=== PATIENT | male | born 1985 | race Caucasian/White ===

== ENCOUNTER 2022-01-28 09:07 | Emergency (ER) | payer OTHER, SELFPAY ==
--- NOTE | 2022-01-28 09:13 | ED.GENADUL_ITS ---
Discharge Plan Disposition Patient Disposition: Home Condition: Stable Discharge Details Clinical Impression: Acute lumbar myofascial strain Primary Care Provider: None,None ED Provider: Christen Fuentes Home Meds and New Rx's Prescriptions: New methocarbamol 500 mg tablet 500 mg PO Q6H PRN (Reason: muscle spasm) Qty: 14 0RF prednisone 20 mg tablet See Rx Instructions .ROUTE .COMPLEX Qty: 12 0RF Rx Instructions: Take 3 tabs daily for 2 days, then 2 tabs daily for 2 days, then 1 tab daily for 2 days Continued acetaminophen 500 mg Tablet 1,000 mg PO Q6H PRN Discharge Instructions Instructions: Muscle Strain (ED) Additional Instructions: Your x-ray today is reassuring and shows no evidence of acute concerning or significant findings. Your symptoms may be secondary to a muscle strain. Alternate ice and heat to the affected area(s) several times daily for 20 minutes at a time. Prescriptions for steroids and muscle relaxers have been sent electronically to your pharmacy. Alternate tylenol and motrin as needed and directed for pain. Take the tramadol as needed directed for pain not relieved with Tylenol or Motrin. You have been placed on care management's list to arrange for a follow-up appointment with a primary care doctor to establish care for reevaluation. Return immediately to the emergency department if you develop any worsening or new concerning symptoms. Stand Alone Forms: Work Release Discharge Data Discharge Date/Time-TO BE ENTERED AT DEPARTURE: 01/28/22 11:06 Discharge Physician: Christen Fuentes Medical Decision Making 0920 -- 36-year-old male presents with midline lower back pain after lifting an approximate 500 pound snowmobile onto a table yesterday at work. No cauda equina symptoms. Vitals within normal limits. Patient appears uncomfortable but nontoxic. His back is normal to inspection although his hunched over forward onto the stretcher while examining his back. He has no midline or paraspinal lumbar tenderness. He is neurovascularly intact without focal deficits. Presentation may be consistent with lumbar strain. Consider vertebral compression fracture considering mechanism of injury and midline pain. History and presentation does not appear consistent with cauda equina syndrome. We will give a dose of Toradol IM, prednisone and Valium p.o. and refer for lumbar spine x-ray and reassess. 1030 --patient reassessed and he denies any relief of pain. X-ray reviewed and negative for acute findings. We will give a dose of tramadol p.o. now and 2 tab bottle to go. Prescriptions for steroids and muscle relaxers sent electronically to his pharmacy. Patient placed on care management's list to arrange for a follow-up appointment with the primary care doctor to establish c are and for reevaluation of his back pain. Usual and customary return precautions given prior to discharge. Medical Records Medical records reviewed: Yes I reviewed the patient's medical records. Imaging Data Radiologic Study: Radiologist's impression: XR LUMBAR SPINE COMPLETE CLINICAL HISTORY: ? pain midline after lifting heavy object, r/o fx.? TECHNIQUE:? 2D digital imaging was performed.? Five views. COMPARISON:? No exams were available for comparison FINDINGS: BONES: No fracture or destructive lesion. Vertebral body heights are maintained.? No facet hypertrophy identified. DISKS: Intervertebral disc spaces are maintained. ALIGNMENT: Lumbar spinal alignment is within normal limits. SOFT TISSUE: Normal. IMPRESSION: Unremarkable radiographs of the lumbar spine. HPI General Mode of arrival: ambulatory . Date/Time Provider Initiated Documentation: 01/28/22 09:09 . Limitations to Documentation: no limitations . Information obtained by: patient . HPI Narrative: Patient is a 36-year-old male who presents with midline lower back pain after lifting a heavy snowmobile at work yesterday. Patient mitts to sudden onset of midline lower back pain when lifting an approximate 500 pound snowmobile onto a table. Patient states the pain occasionally radiates into his buttocks and thighs but states the pain is mainly in his back. He took 1009 g of Tylenol this morning without relief. He has not taken any ibuprofen today. He denies any fever, saddle anesthesia, bowel or bladder incontinence, leg weakness or numbness. Related Data Home Medications Medication Instructions Recorded Confirmed acetaminophen 500 mg tablet 1,000 mg PO Q6H PRN 01/28/22 01/28/22 methocarbamol 500 mg tablet 500 mg PO Q6H PRN muscle spasm #14 01/28/22 tabs prednisone 20 mg tablet See Rx Instructions .Route 01/28/22 .COMPLEX #12 tabs Previous Rx's Medication Instructions Recorded methocarbamol 500 mg tablet 500 mg PO Q6H PRN muscle spasm #14 01/28/22 tabs prednisone 20 mg tablet See Rx Instructions .Route 01/28/22 .COMPLEX #12 tabs Allergies Allergy/AdvReac Type Severity Reaction Status Date / Time No Known Allergies Allergy Unverified 01/28/22 09:18 General Stated Complaint: Nk/Back Pain VIANCA: 3 Review of Systems All systems reviewed & are unremarkable except as noted in HPI and below Constitutional Constitutional: Reports as per HPI, Denies chills and Denies fever(s) Eyes Eyes: Denies blurry vision ENT Ears, Nose, Mouth, and Throat: Denies dizziness, Denies sore throat and Denies throat swelling Cardiovascular Cardiovascular: Denies chest pain and Denies dyspnea Respiratory Respiratory: Denies cough and Denies dyspnea Gastrointestinal Gastrointestinal: Denies abdominal pain, Denies diarrhea and Denies vomiting Genitourinary Genitourinary: Denies hematuria and Denies dysuria Musculoskeletal Musculoskeletal: Reports back pain and Denies numbness Integumentary/Breasts Skin/Breast: Denies lesions and Denies rash Neurologic Neurologic: Denies dizziness, Denies localized weakness and Denies numbness Allergic/Immunologic Allergic/Immunologic: Denies throat swelling PFSH All Active Problems (Updated 01/28/22 @ 10:46 by Christen Fuentes DO) Acute lumbar myofascial strain (Acute) Medical History (Updated 01/28/22 @ 10:46 by Christen Fuentes DO) No significant past medical history Surgical History (Updated 01/28/22 @ 09:36 by Christen Fuentes DO) History of repair of ACL Social History Smoking/Tobacco Use Status: Current every day Tobacco Type: cigarettes Smoking risk assessment performed?: Yes Alcohol Intake: never Drug use: Daily Substance use type: marijuana Do you feel safe at home: Yes Do you feel safe in your relationship?: Yes Exam Const General: cooperative, healthy appearing and no acute distress HENMT Head: normal to inspection Face and sinus: normal facial exam Eyes General: appearance normal, both eyes and all related structures Pupils: PERRL EOM: EOM intact bilaterally Neck Neck: normal visual inspection and No submandibular swelling Lymphatic: no lymphadenopathy noted Chest Chest: normal inspection of the chest and no tenderness Resp Effort & Inspection: normal respiratory effort and able to speak in complete sentences Cardio Rate: regular rate GI Inspection: normal to inspection Palpation: soft Back/Spine/Pelvis Thoracic/Lumbar Spine: thoracic and lumbar spine normal to inspection and No lumbar spinal tenderness Skin General skin exam: no rashes or lesions noted Neuro General: patient alert, patient awake and patient oriented x3 Cognition: normal cognition Speech: speech normal Motor: muscle tone normal throughout and strength 5/5 throughout Sensory Exam: no sensory deficits noted DTR's: Rt Patellar: 2+, Lt Patellar: 2+, Rt Ankle: 2+ and Lt Ankle: 2+ Plantar Reflexes: Equivocal: bilateral (negative babinski b/l ) Extrem General: normal to inspection, full ROM, capillary refill normal, no calf tenderness bilaterally and no edema Other: B/L DP/PT pulses intact. Psych Appearance: grossly normal Mental Status: mental status grossly normal Speech and Movement: speech and movement normal Affect: normal affect
[2022-01-28 09:14] VITALS: BP 107/71; PULSE 64; RESP 18; TEMP 37; O2SAT 97
[2022-01-28] MEDS: predniSONE 20 MG TAB 60 MG PO (09:54)
[2022-01-28] MEDS: diazePAM 5 MG TAB PO (09:54)
[2022-01-28] MEDS: Ketorolac 60 MG/2 ML VIAL IM (09:54)
--- NOTE | 2022-01-28 10:13 | DI.RAD_ITS ---
Exam(s) XR LUMBAR SPINE COMPLETE EXAM: XR LUMBAR SPINE COMPLETE CLINICAL HISTORY: pain midline after lifting heavy object, r/o fx. TECHNIQUE: 2D digital imaging was performed. Five views. COMPARISON: No exams were available for comparison FINDINGS: BONES: No fracture or destructive lesion. Vertebral body heights are maintained. No facet hypertroph y identified. DISKS: Intervertebral disc spaces are maintained. ALIGNMENT: Lumbar spinal alignment is within normal limits. SOFT TISSUE: Normal. IMPRESSION: Unremarkable radiographs of the lumbar spine. DATA REPOSITORY: RADIATION DOSE DELIVERED:
[2022-01-28] MEDS: traMADol 50 MG TAB PO (10:46)
--- NOTE | 2022-01-28 15:51 | NUR.NOTE ---
Nursing Note: Referral given to Care Management for needs PCP, establish care, follow up back pain; 1 to 2 weeks.
== END 2022-01-28 11:06 | disposition home or self-care (01) ==
PROVIDERS: Emergency Provider Physician Assistant
DX: S39.012A Strain of muscle, fascia and tendon of lower back, initial encounter (principal); Y99.0 Civilian activity done for income or pay; X50.0XXA Overexertion from strenuous movement or load, initial encounter
CPT/HCPCS: 96372; 99284; 72110; J1885; J7512